=== PATIENT | male | born 1990 | race Caucasian/White ===

== ENCOUNTER 2019-08-11 22:57 | Emergency (ER) | payer BC ==
[~2019-08-11] VITALS: Ht 175.3 cm; Wt 103.0 kg
[2019-08-11 23:00] VITALS: BP_SYST 152
--- NOTE | 2019-08-11 23:50 | NUR ---
Patient to ER bed 3 to gown for evaluation. Side rails up.
--- NOTE | 2019-08-12 | NUR ---
ER at bedside examining patient.
[2019-08-12] MEDS ORDERED: NACL 0.9% 1,000 ML IV ONE (00:15)
[2019-08-12] MEDS ORDERED: KETOROLAC TROMETHAMINE 30 MG VIAL IVP ONE (00:15)
[2019-08-12] MEDS ORDERED: ONDANSETRON HCL 4 MG/2 ML VIAL IVP ONE (00:15)
--- NOTE | 2019-08-12 00:40 | NUR ---
Pt to CT via stretcher then to U/S.
--- NOTE | 2019-08-12 01:05 | NUR ---
Pt returns from CT and U/S. No needs verbalized at this time.
--- NOTE | 2019-08-12 01:23 | NUR ---
# 18 gauge angiocath placed to RT AC. Use of asceptic technique. Opsite placed over site. Blood return noted. Blood for lab drawn from site. Flushed with 10 cc of normal saline. No evidence of infiltration noted. Patient tolerated well.
[2019-08-12 01:34] LABS: BILIRUBIN,URINE NEGATIVE (NEGATIVE); BLOOD, URINE NEGATIVE (NEGATIVE); CLARITY/URINE CLEAR (CLEAR); COLOR,URINE YELLOW (YELLOW); GLUCOSE,URINE NEGATIVE (NEGATIVE); KETONES,URINE NEGATIVE (NEGATIVE); LEUKOCYTE ESTERASE ,URINE NEGATIVE (NEGATIVE); NITRITE, URINE NEGATIVE (NEGATIVE); PH,URINE 5.5 (5.0-8.0); PROTEIN URINE NEGATIVE (NEGATIVE); UROBILINOGEN,URINE 0.2 (0.2-1.0)
[2019-08-12 01:41] LABS: BASOPHILS % (AUTO) 0.5 % (0.0-2.0); HEMOGLOBIN 15.8 g/dL (14.0-18.0); LYMPHOCYTES # (AUTO) 3.3 K/uL (1.0-5.5); MONOCYTES # (AUTO) 0.7 K/uL (0.0-1.0)
[2019-08-12 01:49] LABS: CALCIUM 8.8 mg/dL (8.4-11.0); CREATININE 0.93 mg/dL (0.55-1.30)
[2019-08-12 01:50] LABS: EOSINOPHILS # (AUTO) 0.4 K/uL (0.0-0.4); EOSINOPHILS % (AUTO) 3.9 % (0.0-4.0); HEMATOCRIT 45.9 % (36-54); LYMPHOCYTES % (AUTO) 35.1 % (20.5-51.5); MEAN CORPUSCULAR HEMOGLOBIN 31 pg (27-31); MEAN CORPUSCULAR HGB CONC 35 % (32-36); MEAN CORPUSCULAR VOLUME 89 fL (79.0-98.0); MONOCYTES % (AUTO) 7.4 % (1.7-9.3); NEUTROPHILS % (AUTO) 53.1 % (40.0-70.0); PLATELET COUNT (AUTO) 266 K/uL (130-430); RED BLOOD CELL COUNT(AUTO) 5.17 MIL/uL (4.2-6.2); WHITE BLOOD COUNT (AUTO) 9.4 K/uL (4.8-10.8)
[2019-08-12 01:55] LABS: TOTAL BILIRUBIN 0.4 mg/dL (0.0-1.0)
--- NOTE | 2019-08-12 02:34 | NUR ---
Crescencio turcios in ED - 08/12/[address] at [email or web address] Bryson at bedside to perform eye exam.
--- NOTE | 2019-08-12 02:34 | NUR ---
Pt sts feeling better.1/10 pain scale at this time.
--- NOTE | 2019-08-12 03:00 | NUR ---
Note undone in EDM - 08/12/19 at 0304 by PILO Patient given written and verbal discharge instructions and verbalizes understanding. ER discussed with patient the results and treatment provided. Patient in stable condition. ID arm band removed. IV catheter removed intact and dressing applied, no active bleeding. Rx of Naprosyn and Flexeril given. Patient educated on pain management and to follow up with PMD. Pain Scale 2/10. Opportunity for questions provided and answered. Medication side effect fact sheet provided.
--- NOTE | 2019-08-12 03:12 | NUR ---
Patient given written and verbal discharge instructions and verbalizes understanding. ER MD discussed with patient the results and treatment provided. Patient in stable condition. ID arm band removed. IV catheter removed intact and dressing applied, no active bleeding. Rx of motrin given. Patient educated on pain management and to follow up with PMD. Pain Scale 0/10. Opportunity for questions provided and answered. Medication side effect fact sheet provided.
[2019-08-12 03:14] VITALS: BP_SYST 140
== END 2019-08-12 03:12 | disposition home or self-care (01) ==
LOC: SED 22:57
DX: N50.812 Left testicular pain (principal); R10.32 Left lower quadrant pain
CPT/HCPCS: 36415; 74176; 76870; 80053; 81003; 85025; 96374; 96375; 99284; J1885; J2405; J7030